=== PATIENT | male | born 1955 | race Caucasian/White ===

== ENCOUNTER 2020-08-31 09:08 | Outpatient (REF) | payer MEDICARE, BC, SELFPAY ==
[2020-08-31 18:59] LABS: ALT 69 U/L (16-63); AST 33 U/L (15-37); Albumin 3.6 g/dL (3.4-5.0); Alkaline Phosphatase 41 U/L (46-116); Anion Gap 8.3 mmol/L (3-11); BUN 18 mg/dL (7-18); Bilirubin, Total 0.7 mg/dL (0.2-1.0); CO2 25.7 mmol/L (21.0-32.0); CREATININE 0.89 mg/dL (0.70-1.30); Calcium 8.8 mg/dL (8.5-10.1); Chloride 103 mmol/L (98-107); Glucose 185 mg/dL (74-106); Potassium 4.3 mmol/L (3.5-5.1); Sodium 137 mmol/L (136-145); Total Protein 6.3 g/dL (6.4-8.2)
[2020-08-31 19:12] LABS: Hemoglobin A1C 7.2 % (<5.7)
[2020-08-31 22:22] LABS: Calculated LDL 92 mg/dL (<100); Cholesterol 155 mg/dL (<200); HDL Cholesterol 49 mg/dL (40-60); Triglyceride 71 mg/dL (<150)
[2020-09-01 18:08] LABS: PSA, Diagnostic 2.5 ng/mL (0.0-4.5)
== END 2020-08-31 09:28 ==
LOC: NCHCN 09:08
PROVIDERS: Visit Provider Physician Assistant
DX: E11.9 Type 2 diabetes mellitus without complications (principal); I10 Essential (primary) hypertension; R97.20 Elevated prostate specific antigen [PSA]
CPT/HCPCS: 80053; 80061; 83036; 84153

== ENCOUNTER 2021-07-24 14:14 | Outpatient (REF) | payer MEDICARE, BC, SELFPAY ==
[2021-07-24 15:29] LABS: Hemoglobin A1C 6.9 % (<5.7)
== END 2021-07-24 14:15 | disposition home or self-care (01) ==
LOC: NCHCN 14:14
PROVIDERS: Visit Provider Physician Assistant
DX: I10 Essential (primary) hypertension (principal); E11.9 Type 2 diabetes mellitus without complications
CPT/HCPCS: 83036

== ENCOUNTER → 2022-09-16 01:59 | Outpatient (CLI) | payer MEDICARE, BC, SELFPAY ==
--- NOTE | 2022-09-16 13:45 | DI.MRI_ITS ---
Exam(s) MR LUMBAR SPINE WO EXAM: MR LUMBAR SPINE WO CLINICAL HISTORY: CHRONIC LBP WITH RT-SIDED RADICULOPATHY, M54.5. TECHNIQUE: Multiplanar multisequence MRI of the Lumbar spine was performed. COMPARISON: No exams were available for comparison FINDINGS: Bones: The last intervertebral disc space is designated the L5/S1 level for the numbering purpose of this examination. Degenerative disc disease and facet arthropathy is seen at multiple levels. Alig nment is satisfactory. Hemangioma are seen in the T12 and L5 vertebral bodies. Cord: The conus tip ends at the T12 level. It is of normal size and signal intensity. T12-L1: No disc herniations or bulges are present. No central spinal canal or neural foraminal stenos is. L1-2: No disc herniations or bulges are present. No central spinal canal or neural foraminal stenosis . L2-3: No disc herniations or bulges are present. No central spinal canal or neural foraminal stenosis . L3-4: No disc herniations or bulges are present. No central spinal canal or neural foraminal stenosis . L4-5: There is a mild diffuse disc bulge and mild degenerative facet arthropathy. No significant juan ramon tral spinal canal stenosis is seen. No significant neural foraminal stenosis is present. L5-S1: There is a mild diffuse disc bulge. Mild degenerative changes of the facets are seen. There is no significant central spinal canal stenosis. There is moderate bilateral neural foraminal stenos is. Soft tissues: The visualized SI joints and sacrum are well maintained. The paraspinal soft tissues ar e unremarkable. IMPRESSION: Degenerative changes in the lumbar spine most marked at L4-5 and L5-S1 as described above. DATA REPOSITORY:
== END ==
PROVIDERS: Visit Provider Physician Assistant
DX: M47.816 Spondylosis without myelopathy or radiculopathy, lumbar region (principal)
CPT/HCPCS: 72148

== ENCOUNTER 2023-03-03 09:29 | Day surgery (SDC) | payer MEDICARE, BC, SELFPAY ==
--- NOTE | 2023-03-03 07:28 | ANES.PREOP_ITS ---
General Info Date of Service Date Performed: 03/03/23 Height: 5 ft 9 in Weight: 104.326 kg Body Mass Index (BMI): 34.0 Surgical Procedure: Operation Date: 03/03/23 12:40 Proposed Procedure Side Surgeon p Cataract Extraction with IOL Implant w/Glaucoma Stent Right Robert Salinas MD Meds Allergies and Home Medications Allergies Allergy/AdvReac Type Severity Reaction Status Date / Time amlodipine AdvReac Mild Pt states Unverified 03/03/23 10:05 it makes my legs swell Home Medication Medication Instructions Recorded apixaban 5 mg tablet (Eliquis) 5 mg PO BID 02/28/23 cyclobenzaprine 10 mg tablet 10 mg PO TID PRN 02/28/23 diltiazem HCl 300 mg capsule,24 300 mg PO DAILY 02/28/23 hr,extended release empagliflozin 25 mg tablet 25 mg PO QAM 02/28/23 (Jardiance) lisinopril 20 mg tablet 20 mg PO DAILY 02/28/23 metformin 1,000 mg tablet 1,000 mg PO BID 02/28/23 metoprolol succinate 50 mg 50 mg PO DAILY 02/28/23 tablet,extended release 24 hr spironolactone 25 mg tablet 25 mg PO DAILY 02/28/23 Current Visit Medications: Current Medications Generic Name Dose Route Start Last Admin Trade Name Freq PRN Reason Stop Dose Admin Acetaminophen 1,000 mg 03/03/23 06:00 Acetaminophen 500 Mg Tab PO Q4H PRN PRN Miscellaneous Medication 0 ml 03/03/23 06:00 Tropicam./Phenyleph. (1/2.5%) 5 Ml Btl OD DIRECTED [facility] Miscellaneous Medication 0 ml 03/03/23 06:00 Prednisolone 1%, Moxifloxacin 0.5%, Nepafenac 0.1% 5ml Btl OD DIRECTED B[facility]ARD Tetracaine HCl 0 ml 03/03/23 06:00 Tetracaine 0.5% 4 Ml Btl OD DIRECTED [facility] PFSH Active Problems Active Problems: Problem Status Onset Code Nuclear age-related cataract, right eye H25.11 Medical History Medical History (Updated 02/28/23 @ 13:34 by Robert Salinas MD) Diabetes mellitus HTN (hypertension) New onset a-fib Surgical History Surgical History (Updated 02/28/23 @ 11:40 by Wild Haywood) History of carpal tunnel release Hx of colonoscopy Tobacco Smoking/Tobacco Use Status: Former Tobacco Use Alcohol Alcohol Intake: current Alcohol intake frequency: 3 or more drinks per day Alcohol type: beer Substance Use Substance use: Occasionally Substance use type: marijuana Vital Signs and Lab Results Vital Signs Most Recent Vital Signs in EMR: Temp Pulse Resp BP Pulse Ox 36.1 C L 76 16 119/75 99 03/03/23 09:45 03/03/23 09:45 03/03/23 09:45 03/03/23 09:45 03/03/23 09:45 Lab Results Blood Type / Crossmatch: No Data to Display Complete Blood Count: No Data to Display Complete Metabolic Panel: No Data to Display Liver Function Panel: No Data to Display Coagulation Panel: No Data to Display Cardiac Panel: No Data to Display Arterial Blood Gas: No Data to Display Venous Blood Gas: No Data to Display Pancreas Panel: No Data to Display Thyroid Panel: No Data to Display Infectious Disease: No Data to Display Blood Cultures: No Data to Display Toxicology Panel: No Data to Display Anesthesia Assessment and Plan Anesthesia History Personal History: No History of Anesthesia Complications Family History: No Family History of Anesthesia Complications Exercise Tolerance Exercise Tolerance: Metabolic Equivalents>4 Cardiac & Pulmonary Exam Cardiac Exam: Normal S1/S2 Heart Sounds Pulmonary Exam: Clear Bilateral Breath Sounds Implantable Cardiac Device Does patient have a Pacemaker or an ICD?: No Airway Exam Known Difficult Airway: No Mallampati Class: 2 Mouth Opening: Normal (> 3cm) Thyromental Distance: Greater than 3 cm Neck Range of Motion: Limited ROM Neck Circumference: Thick Teeth Condition: Normal Dentition ASA Classification ASA Score: ASA 3 Emergency Case?: No NPO Status NPO Status: NPO Clears >2 hours, Solids >8 hours Anesthesia Plan Resuscitation Status: Full Code Anesthesia Technique: MAC Anesthesia Airway Planned: Natural Airway Monitors Used: Standard Monitors Preoperative Comments:: 68 yo male for cataract removal. would like MKO Sig PMHx: DM (07/21 a1c 6.9%, metformin, empagliflozin), afib (apixaban, dilt), HTN (lisinopril, metoprolol), former smoker, daily EtOH/cannabis.
[2023-03-03 09:32] VITALS: BMI 34.0
[2023-03-03 09:45] VITALS: BP 119/75; PULSE 76; RESP 16; TEMP 36.1; O2SAT 99
[2023-03-03] MEDS: Tropicam./Phenyleph. (1/2.5%) 5 ML BTL OD ×3 (10:09→10:22)
[2023-03-03] MEDS: Tetracaine 0.5% 4 ML BTL OD (10:48)
[2023-03-03] MEDS: Balanced Salt Soln.-PLUS 500 ML BAG (10:48)
[2023-03-03] MEDS: Lidocaine 1% Pres-Free 5 ML VIAL (10:49)
[2023-03-03] MEDS: Duovisc Viscoelastic System EACH 1 EACH (10:50)
[2023-03-03] MEDS: Povidone-Iodine Ophth 30 ML BTL (10:50)
[2023-03-03] MEDS: Phenylephrine/Lidocaine (15/10) MG/ML 1 ML VIAL (10:50)
[2023-03-03 11:08] VITALS: BP 109/68; PULSE 77; RESP 16; TEMP 36.3; O2SAT 95
--- NOTE | 2023-03-03 11:12 | W.PM.DSUDISC ---
Date of service: 03/03/23 Time of Service: 11:12 Discharge Plan Disposition Patient Disposition: Home Discharge Details Attending Provider: Robert Salinas Primary Care Provider: Breezy Love Home Meds and New Rx's Prescriptions: No Action cyclobenzaprine 10 mg Tablet 10 mg PO TID PRN lisinopril 20 mg Tablet 20 mg PO DAILY diltiazem HCl 300 mg Capsule,Extended Release 24 Hr 300 mg PO DAILY spironolactone 25 mg Tablet 25 mg PO DAILY metformin 1,000 mg Tablet 1,000 mg PO BID Eliquis 5 mg Tablet 5 mg PO BID Jardiance 25 mg Tablet 25 mg PO QAM metoprolol succinate 50 mg Tablet Extended Release 24 Hr 50 mg PO HS Discharge Instructions Stand Alone Forms: Post-op Topical CataractBj (DSU) Discharge Orders Discharge Orders: Discharge Order (Routine); Ordered 03/03/23 Ordered By: Robert Salinas DS: Diagnosis Discharge Diagnosis (1) Nuclear age-related cataract, right eye: Status: Resolved (2) Primary open angle glaucoma (POAG) of right eye, mild stage: Status: Chronic
--- NOTE | 2023-03-03 11:13 | ROE_ITS ---
Date of service: 03/03/23 Time of Service: 11:13 Operative Note Operative Note DATE OF PROCEDURE: 03/03/23 PRE-OP DIAGNOSIS: Nuclear cataract, right eye Primary open-angle glaucoma, right eye, mild stage POST-OP DIAGNOSIS: same PROCEDURE: 1. Cataract extraction using phacoemulsification with intraocular lens implant, right eye 2. Insertion of multiple anterior segment aqueous drainage devices (Glaukos iStent inject) into trabecular meshwork, right eye SURGEON: Robert Salinas ANESTHESIA TYPE: Local By Surgeon and MAC Refer to Anesthesia Record PATHOLOGY: none sent COMPLICATIONS: None Patient was transported to: same day Patient's condition: stable Implants: 1. Guilherme and Guilherme Vision Tecnis Eyhance DIB00 intraocular lens 2. Glaukos iStent inject trabecular micro-bypass stents Indications: 1. Progressive decreased vision due to cataract, right eye 2. Primary open angle glaucoma, right eye Procedure Description: CATARACT SURGERY OPERATIVE REPORT PREOPERATIVE DIAGNOSIS: Nuclear cataract, right eye Primary open-angle glaucoma, right eye, mild stage POSTOPERATIVE DIAGNOSIS: Same OPERATION: 1. Cataract extraction using phacoemulsification with posterior chamber intraocular lens implant, right eye. 2. Insertion of multiple anterior segment aqueous drainage devices (Glaukos iStent inject) into trabecular meshwork, right eye IOL: IOL Gas Welder/Model: Guilherme and Guilherme Vision Tecnis Eyhance DIB00 IOL Power: + 19.0 diopters IOL Serial Number: [id number] Optic Diameter: 6.0mm Haptic/Overall Diameter: 13.0mm PHACO INFO: Jasper Centurion Vision System with OZil and Active Fluidics Cumulative Dispersed Energy (CDE): 5.93 seconds TRABECULAR MICRO-BYPASS STENT INFO: Glaukos iStent inject x 2 Reference Number: [id number] Serial Number: [id number] SURGEON: Robert Salinas MD, SUDHA ANESTHESIA: Monitored Anesthesia Care (MAC), with local sub-tenon's anesthetic infiltration COMPLICATIONS: None SPECIMENS: None INDICATIONS FOR PROCEDURE: The patient is a 68-year-old gentleman with history of primary open-angle glaucoma, mild stage, in both eyes. He is currently maintained on 2 topical medications. He has developed a visually symptomatic cataract in the right eye and desires cataract surgery and attempt to improve and maximize his vision. In addition, the option of glaucoma stent procedure at the time of cataract surgery was offered to the patient and he wished to proceed with that as well. PROCEDURE: The correct surgical eye was identified and marked as the right eye and the pupil was dilated in the preoperative area using mydriatics and cycloplegics. The dilated pupil size was 7.0 mm. Oral sedation was administered in the form of an Imprimis MKO Melt (midazolam 3mg/ketamine 25mg/ondansetron 2mg). The patient was brought to the operating room where cardiopulmonary monitoring was instituted and surgical time-out was performed, confirming the correct operative eye and IOL power. Topical anesthesia was administered and ophthalmic povidone-iodine 5% was instilled into the conjunctival fornices. Lidocaine gel was applied to the cornea and the aditi-ocular area was prepped with Betadine 10% solution and draped in the usual sterile fashion for intraocular surgery, including an aperture drape. A Tegaderm transparent film dressing was cut in half and used to cover the lashes and lid margins. Care was taken to sequester the lashes and lid margins under the Tegaderm dressing. A lid speculum was placed between the lids of the operative eye and the Jasper LuxOR Revalia operating microscope was maneuvered into position. Kathryn scissors were then used to make a conjunctival buttonhole approximately 6mm posterior to the limbus in the inferonasal quadrant. Blunt dissection was carried out to expose bare sclera, and a blunt-tipped sub-tenon?s anesthesia cannula was introduced and passed posteriorly along the globe where non- preserved plain lidocaine was injected into posterior sub-Tenon?s space. A sideport knife was used to make a paracentesis port inferiortemporally. Intraocular phenylephrine/lidocaine was injected into the anterior chamber. The anterior chamber was then filled with viscoelastic. A 2.4mm keratome knife was used to construct a 2-plane near-clear corneal tunnel extending 2.0mm into clear cornea superiortemporally. . A flap was raised on the anterior capsule and capsulorhexis forceps were used to complete a continuous curvilinear capsulorhexis of 5.0 mm. Balanced salt solution was then used to perform cortical cleaving hydrodissection and nuclear hydrodelineation until the lens could be freely rotated within the capsular bag. The lens nucleus was then disassembled and removed within the capsular bag and iris plane using phacoemulsification. Residual cortical material was removed using the 45-degree angled silicone I/A tip with 0.3mm port. The posterior capsule was carefully polished to remove as much residual lens epithelial cells as safely possible. The capsular bag was then inflated and the anterior chamber deepened with viscoelastic. The lens implant described above was inserted into the capsular bag using the Guilherme and Guilherme Simplicity Injector. A Kuglen hook was used to dial the IOL into position. The anterior chamber was then slightly over-filled with viscoelastic. The microsope and the patient's head were tilted into the ideal position for viewing of the anterior chamber angle. Viscoelastic was placed on the cornea followed by a surgical gonionlens, and the anterior chamber angle landmarks were identified. The [employer]com iStent inject handpiece was introduced into the anterior chamber and the insertion sleeve was retracted once the injector was distal to the pupillary margin. The trocar was advanced through the central portion of the trabecular meshwork and into the back wall of Schlemm's canal in the inferonasal quadrant, with care taken to ensure the micro-insertion tube was perpendicular to the trabecular meshwork. The trabecular meshwork was lightly dimpled and the stent was injected without difficulty. The same procedure was then performed in the superiornasal quadrant. Both stents were then examined and noted to be in good position within the trabecular meshwork. A mild amount of blood reflux from the stent apertures was noted. The microscope and the patients head were returned to the normal coaxial position. Viscoelatic was then removed from the anterior chamber using the I/A handpiece. The lens implant was noted to center nicely within the capsular bag. The incisions were stromally hydrated, and the anterior chamber was reformed using BSS. Then 0.5cc of moxifloxacin 1.0mg/ml were injected into the capsular bag and anterior chamber. The incisions were checked with a Weck spear and found to be secure. Several drops of ophthalmic povidone-iodine 5% were then applied to the eye followed by two drops of Imprimis combination prednisolone/moxifloxacin/nepafenac solution. The drapes were removed and a clear plastic protective eye shield was placed over the eye. The patient was then returned to Same Day Surgery in stable condition.
--- NOTE | 2023-03-03 11:29 | W.ANESPOSTOP ---
Postoperative Evaluation Date, Time and Location Date Performed: 03/03/23 Time Performed: 11:29 Patient Location: Day Surgery Unit Vital Signs Most Recent Imported Vital Signs: Most Recent Vital Signs Temp Pulse Resp BP Pulse Ox 36.3 C L 77 16 109/68 95 03/03/23 11:08 03/03/23 11:08 03/03/23 11:08 03/03/23 11:08 03/03/23 11:08 Pain Score Most Recent Pain Score: Most Recent Pain Score Pain Level 0 03/03/23 11:08 Assessment Mental Status: Awake (Alert & Oriented to Patient Baseline) Airway and Respiratory Function: Patent airway with normal (patient baseline) respiratory exam Cardiovascular Function: Hemodynamically Stable Hydration Status: Adequately Hydrated Nausea & Vomiting: No Nausea or Vomiting Pain: Pt. Denies Any Pain Peripheral Nerve Block: Patient did not receive a nerve block
[2023-03-03 11:41] VITALS: BP 118/72; PULSE 76; RESP 16; TEMP 36; O2SAT 96
== END 2023-03-03 12:04 | disposition home or self-care (01) ==
PROVIDERS: PCP Physician Assistant; Visit Provider Ophthalmology
PROC: (CPT 66991; principal; 2023-03-03 12:30)
DX: H25.11 Age-related nuclear cataract, right eye (principal); H40.1111 Primary open-angle glaucoma, right eye, mild stage; I48.91 Unspecified atrial fibrillation; E11.9 Type 2 diabetes mellitus without complications; I10 Essential (primary) hypertension
CPT/HCPCS: 66991; V2632; C1783

== ENCOUNTER 2023-05-08 02:20 | Outpatient (CLI) | payer MEDICARE, BC, SELFPAY ==
--- NOTE | 2023-05-08 07:30 | DI.US_ITS ---
APPROVED REPORT EXAM: Comprehensive 2D, Doppler, and color-flow Echocardiogram Patient Location: Out-Patient [facility] Person: Shirin Miller RDCS (AE) Indications: AFib Other Information Study Quality: Fair Conclusion Normal left ventricular wall thickness and chamber size. Ejection fraction is 55 to 60%. Wall motio n is normal Normal right ventricular size and systolic function The left atrium is mildly dilated. Right atrial size is normal Aortic valve is trileaflet with mild regurgitation Normal mitral valve with trace regurgitation. Mildly dilated ascending aorta measuring 3.6 cm Estimated right ventricular systolic pressure is 22 mmHg Wall motion Left Ventricle The left ventricle is normal size. The left ventricular systolic function is normal. The left ventric ular ejection fraction is within the normal range. There is normal left ventricular wall thickness. T here is normal LV segmental wall motion. There is no ventricular septal defect visualized. LVEF is 55 -60%. Right Ventricle The right ventricle is normal size. The right ventricular systolic function is normal. The RVSP is 22 .2 mmHg. Atria The left atrium size is mildly dilated The right atrium size is normal. The interatrial septum is int act with no evidence for an atrial septal defect. Aortic Valve The aortic valve is normal in structure. There is no aortic valvular stenosis. Mild aortic regurgitat ion. Mitral Valve The mitral valve is normal in structure. No evidence of mitral valve stenosis. Trace mitral regurgit ation. Tricuspid Valve The tricuspid valve is normal in structure. There is no tricuspid valve stenosis. Trace tricuspid reg urgitation. Pulmonic Valve The pulmonary valve is normal in structure. There is no pulmonic valvular stenosis. Trace pulmonic re gurgitation. Great Vessels The aortic root is normal in size. The ascending aorta is mildly dilated. Aortic arch is not well vis ualized. IVC is normal in size and collapses >50% with inspiration. Pericardium There is no pericardial effusion. 2D Dimensions IVSD d PLAX 1.00 cm M: 0.6-1.2 LV Vol A2C d MOD 125.1 mL LVPW d PLAX 1.01 cm M: 0.6 - 1.2 LV Vol A4C d MOD 115.1 mL LVID d PLAX 4.72 cm M: 4.2 - 5.8 LA vol/ BSA A2C s A-L 31.6 mL/m2 LVDs 3.15 cm M: 2.5 - 4.0 LA vol/ BSA A4C s A-L 29.2 mL/m2 Ao Root d 3.60 cm M: 3.1 - 3.7 LA Vol/ BSA Biplane s A-L 30.5 mL/m2 RA Area A4C 16.72 cm2 LA Area A4C s MOD 21.99 cm2 RA Vol/ BSA A4C s A-L 18.3 mL/m2 LA Area A2C s MOD 22.83 cm2 Ao Asc Diam d 3.60 cm M: 2.6 - 3.4 LV EF A4C MOD 59.6 % LV EF Teichholz 60.8 % LV EF A2C MOD 55.9 % LVEF (Meehan's) 55.69 % M: 52 - 72 LV EF Biplane MOD 55.7 % LV Volume 87.38 mL M: 62 - 150 SV 66.87 mL LV Volume Index 39.71 mL/m2 M: 34 - 74 SV Index 30.45 mL/m2 LV Vol Biplane MOD 120.1 mL FS 32.50 % M-Mode TAPSE 1.20 cm (M/F) >1.7 LV Diastology MV E' medial 0.109 (>0.07 m/s) MV E Vmax 0.81 (0.4-1.3 m/s) LV E/e MED 7.45 (<14) MV E' lateral 0.115 (>0.1 m/s) LV E/e LAT 7.05 (<14) MV E/E' medial 7.46 MV E/E' lateral 7.06 Aortic Valve LVOT Area 3.82 cm2 AoV Area Vmax 2.59 cm2 LVOT Vmax 0.97 m/s AoV Area/ BSA (Vmax) 1.18 cm2/m2 LVOT Mean Samir. 0.70 m/s DANNIE Mean Samir. 2.82 cm2 LVOT Peak Grad 3.7 mmHg DANNIE Mean Samir. Index 1.28 cm2/m2 LVOT Mean Grad 2.3 mmHg AR DT 1286 msec LVOT VTI 0.188 m AR PHT 373 msec LVOT Diam s 2.20 cm AoV Vmax 1.43 m/s Velocity Ratio 0.68 AoV Mean Samir. 0.95 m/s AoV Peak Grad 8.1 mmHg LVOT SV 71.88 mL AoV Mean Grad 4.1 mmHg AoV VTI 0.222 m AoV Area VTI 3.24 cm2 AoV Area/ BSA (VTI) 1.48 cm/m2 Mitral Valve MV DT 142 (160-240 msec) MV PHT 41 msec MV Area PHT 5.35 cm2 MV VTI 0.249 m MV Area VTI 2.89 (4.0-6.0 cm2) Pulmonary Valve PV Vmax 0.85 (0.5-1.5 m/s) RVOT Peak Gr. 1.20 mmHg PV Peak Grad 2.9 mmHg RVOT Mean Gr. 0.65 mmHg PV Mean Grad 1.6 mmHg RVOT VTI 0.089 m PV VTI 0.148 m RVOT Vmax 0.55 m/s Tricuspid Valve TR Peak Grad 19.1 mmHg TR Vmax 2.19 m/s RA Pressure 3.00 mmHg RVSP (TR) 22.2 mmHg
== END 2023-05-08 02:40 ==
LOC: DI 02:20
PROVIDERS: PCP Physician Assistant; Visit Provider Physician Assistant
DX: I48.91 Unspecified atrial fibrillation (principal)
CPT/HCPCS: 93306

== ENCOUNTER 2023-06-20 14:42 | Outpatient (REF) | payer MEDICARE, BC, SELFPAY ==
[2023-06-20 15:34] LABS: Hemoglobin A1C 7.3 % (<5.7)
[2023-06-20 15:42] LABS: ALT 27 U/L (16-63); AST 13 U/L (15-37); Alkaline Phosphatase 46 U/L (46-116); Anion Gap 12.6 mmol/L (3-11); BUN 26 mg/dL (7-18); Bilirubin, Total 0.4 mg/dL (0.2-1.0); CO2 24.4 mmol/L (21.0-32.0); CREATININE 0.8 mg/dL (0.70-1.30); Calcium 9.4 mg/dL (8.5-10.1); Calculated LDL 43 mg/dL (<100); Chloride 102 mmol/L (98-107); Cholesterol 109 mg/dL (<200); Glucose 202 mg/dL (74-106); HDL Cholesterol 49 mg/dL (40-60); Potassium 4.8 mmol/L (3.5-5.1); Sodium 139 mmol/L (136-145); Total Protein 6.9 g/dL (6.4-8.2); Triglyceride 89 mg/dL (<150)
[2023-06-20 15:58] LABS: Microalb ug/mg Crea 10.3 ug/mg Cr
== END 2023-06-20 14:43 | disposition home or self-care (01) ==
LOC: NCHCN 14:42
PROVIDERS: PCP Physician Assistant; Visit Provider Physician Assistant
DX: E11.9 Type 2 diabetes mellitus without complications (principal)
CPT/HCPCS: 80053; 80061; 82043; 82570; 83036

== ENCOUNTER 2023-08-28 10:28 | Outpatient (CLI) | payer MEDICARE, BC, SELFPAY ==
[2023-08-28 11:06] VITALS: BP 127/85; PULSE 73; RESP 20; TEMP 36.3; O2SAT 97
--- NOTE | 2023-08-28 11:56 | DI.RAD_ITS ---
Exam(s) XR PAIN CLINIC LUMBAR SP 2V EXAM: XR PAIN CLINIC LUMBAR SP 2V CLINICAL HISTORY: DX: Lumbar spondylosis. TECHNIQUE: 2D and realtime digital imaging was performed. CONTRAST MATERIAL: None COMPARISON: No exams were available for comparison FINDINGS: Fluoroscopy provided during pain management therapy. Please see report for details. IMPRESSION: Total fluoroscopy time 53.9 seconds RADIATION DOSE DELIVERED: Ka,r=24.24mGy
[2023-08-28 12:03] VITALS: BP 136/95; PULSE 102; RESP 25; O2SAT 99
[2023-08-28] MEDS: Bupivacaine 0.5% Pres-Free 10 ML VIAL IJ (12:06)
[2023-08-28] MEDS: Omnipaque 240 MG/ML 50 ML BTL IJ (12:07)
--- NOTE | 2023-08-29 10:04 | PDOC.PAIN_ITS ---
Date of service: 08/28/23 Time of Service: 12:36 Pain Managment Procedure Note Procedure Note Procedure Note: PROCEDURE NOTE Bilateral Lumbar Medial Branch Blocks Date of Service: August 28, 2023 Patient: Levi Hardwick Provider: Marco A Gabriel DO, MPH Levisusu Hardwick has been referred to the [facility] for lumbar medial branch blocks. Pre-operative diagnosis: Lumbar Spondylosis without Myelopathy Post-operative diagnosis: Same Pre-procedure pain: VAS= 8/10 COMMENTS: He was previously evaluated in our clinic and his symptoms remain the same. He will remain on Eliquis per GREG Guidelines. Barb was interviewed and the medical records were reviewed. There were no medical, pharmacologic, radiographic or other structural contraindications to attempting fluoroscopically guided local anesthetic lumbar medial branch blocks. Risks and potential side effects were discussed. I also discussed the potential benefit(s) of the procedure with Levi, and voiced concerns were addressed. After Levi was completely informed about the procedure, the printed consent form was signed. A standard time-out procedure was performed. Levi was placed in the prone position on the fluoroscopy table. Automated blood pressure cuff and pulse oximeter were applied. The skin entry points for approaching the anatomic target points of the segmental medial branches of bi lateral L3,L4,L5 were identified with fluoroscopy and marked. The skin at the target site area was thoroughly prepared with Chlorhexadine. The skin was then draped. Next, a 25 gauge 3.5 spinal needle was placed under fluoroscopic guidance down on to the target point (the articular pillar) for each respective segmental medial branch. Position was confirmed in A/P and lateral views. Aspiration revealed no blood or clear fluid. Next, 0.25ml of omnipaque 240 was injected at each level. No contrast following a vascular or neural pattern was visualized under continuous fluoroscopy. Next, 0.25 ml of preservative-free 0.5% bupivicaine was injected at each level. There was no unusual discomfort expressed by Levi. The needles were withdrawn without difficulty. (49 mls of Omnipaque was wasted) Levi was observed and was without hemodynamic, neurologic, or allergic reactions.? Fluoroscopic images were digitally archived. Provacative testing using the Modified Queen's facet loading test- Left side Right Side Directly before the block VAS (0-10) = 8/10 VAS (0-10) = 8/10 Five minutes after the block VAS (0-10) = 5/10 VAS (0-10) = 5/10 Percentage relief obtained with this diagnostic block 50% 50% Any improved physical functioning directly after the blocks? Able to move much better. Follow up plans and appointments were discussed with Levi. Levi was instructed to keep careful note of how the usual pain was modified by these injections. Specifically, to keep a pain diary for the next 4 hours using a [facility] pain scale of 0-10 and report these results. Post procedure instruction was given as documented in the nursing documentation and having met discharge criteria, the patient was [facility] from the [facility]. Based on the medial branches blocked today, if they patient has adequate relief and we are able to proceed to radiofrequency ablation, the treatment should result in the denervation of the bilateral L4-L5 and L5-S1 facet joints. We would expect to denervate a total of 4 facets during the radiofrequency ablation. COMMENTS: No apparent complications. Post-procedure pain: VAS= 5/10 Levi will call back with 0-4 hour post-procedure pain scores. I personally performed the entire procedure. MARCO A GABRIEL DO, MPH ABPM&R-subspecialty board certification in Pain Medicine [facility]
== END 2023-08-28 10:29 | disposition home or self-care (01) ==
LOC: PC 10:28
PROVIDERS: PCP Physician Assistant; Visit Provider Preventive Medicine Occupational Medicine
DX: M54.50 Low back pain, unspecified (principal); M47.816 Spondylosis without myelopathy or radiculopathy, lumbar region
CPT/HCPCS: 64493; 64494; 72100; Q9967

== ENCOUNTER 2023-09-17 09:02 | Outpatient (CLI) | payer MEDICARE, BC, SELFPAY ==
--- NOTE | 2023-09-17 06:00 | DI.RAD_ITS ---
Exam(s) XR PAIN CLINIC LUMBAR SP 2V EXAM: XR PAIN CLINIC LUMBAR SP 2V CLINICAL HISTORY: Dx: Lumbar Spondylosis TECHNIQUE: 2D and realtime digital imaging was performed. CONTRAST MATERIAL: Refer to procedure report. COMPARISON: No exams were available for comparison FINDINGS: Fluoroscopy was provided for Dr. Gabriel during the performance of a lumbar medial branch block. Lester abreu refer to the procedure report for complete details. Ka,r=26.4 mGy IMPRESSION:
[2023-09-17 09:15] VITALS: BP 143/68; PULSE 93; RESP 20; TEMP 36.3; O2SAT 95
[2023-09-17 10:05] VITALS: BP 142/96; PULSE 99; RESP 25; O2SAT 95
[2023-09-17] MEDS: Bupivacaine 0.5% Pres-Free 10 ML VIAL IJ (10:07)
[2023-09-17] MEDS: Omnipaque 240 MG/ML 50 ML BTL IJ (10:08)
--- NOTE | 2023-09-17 10:13 | PDOC.PAIN ---
Date of service: 09/17/23 Time of Service: 10:13 Pain Managment Procedure Note Procedure Note Procedure Note: PROCEDURE NOTE Bilateral Lumbar Medial Branch Blocks Date of Service: September 17, 2023 Patient: Levi Hardwick Provider: Michael Gabriel DO, MPH Levi Hardwick has been [facility] to [facility] for lumbar medial branch blocks. 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 His pain has returned. Barb was interviewed and the medical records were reviewed. There were no medical, pharmacologic, radiographic or other structural contraindications to attempting fluoroscopically guided local anesthetic lumbar medial branch blocks. Risks and potential side effects were discussed. I also discussed the potential benefit(s) of the procedure with Levi, and voiced concerns were addressed. After Levi was completely informed about the procedure, the printed consent form was signed. A standard time-out procedure was performed. Levi was placed in the prone position on the fluoroscopy table. Automated blood pressure cuff and pulse oximeter were applied. The skin entry points for approaching the anatomic target points of the segmental medial branches of bilateral L3,L4,L5 were identified with fluoroscopy and marked. The skin at the target site area was thoroughly prepared with Chlorhexadine. The skin was then draped. Next, a 25 gauge 3.5 spinal needle was placed under fluoroscopic guidance down on to the target point (the articular pillar) for each respective segmental medial branch. Position was confirmed in A/P and lateral views. Aspiration revealed no blood or clear fluid. Next, 0.25ml of omnipaque 240 was injected at each level. No contrast following a vascular or neural pattern was visualized under continuous fluoroscopy. Next, 0.25 ml of preservative-free 0.5% bupivicaine was injected at each level. There was no unusual discomfort expressed by Levi. The needles were withdrawn without difficulty. (49 mls of Omnipaque was wasted) Levi was observed and was without hemodynamic, neurologic, or allergic reactions.? Fluoroscopic images were digitally archived. Provacative testing using the Modified Queen's facet loading test- Left side Right Side Directly before the block VAS (0-10) = 8/10 VAS (0-10) = 8/10 Five minutes after the block VAS (0-10) = 3/10 VAS (0-10) = 3/10 Percentage relief obtained with this diagnostic block 80% 80% Any improved physical functioning directly after the blocks? Able to bend and move without difficultly. Follow up plans and appointments were discussed with Levi. Levi was instructed to keep careful note of how the usual pain was modified by these injections. Specifically, to keep a pain diary for the next 4 hours using a numeric pain scale of 0-10 and report these results. Post procedure instruction was given as documented in the nursing documentation and having met discharge criteria, the patient was [facility] from the [facility]. Based on the medial branches blocked today, if they patient has adequate relief and we are able to proceed to radiofrequency ablation, the treatment should result in the denervation of the bilateral L4-L5 anL5-S1 facet joints. We would expect to denervate a total of 4 facets during the radiofrequency ablation. COMMENTS: No apparent complications. Post-procedure pain: VAS= 3/10 Levi will call back with 0-4 hour post-procedure pain scores. I personally performed the entire procedure. MICHAEL GABRIEL DO, MPH ABPM&R-subspecialty board certification in Pain Medicine [facility] [facility]
== END 2023-09-17 09:03 | disposition home or self-care (01) ==
LOC: PC 09:02
PROVIDERS: PCP Physician Assistant; Visit Provider Preventive Medicine Occupational Medicine
DX: M54.50 Low back pain, unspecified (principal); M47.816 Spondylosis without myelopathy or radiculopathy, lumbar region
CPT/HCPCS: 00123; 64493; 64494; 72100; Q9967

== ENCOUNTER 2023-10-30 08:18 | Outpatient (CLI) | payer MEDICARE, BC, SELFPAY ==
[2023-10-30 08:37] VITALS: BP 130/83; PULSE 61; RESP 20; TEMP 36.1; O2SAT 97
[2023-10-30] MEDS: Lactated Ringers 500 ML 80 ML IV (09:21)
[2023-10-30] MEDS: Midazolam 2 MG/2 ML VIAL IVP (09:21)
[2023-10-30] MEDS: fentaNYL 100 MCG/2 ML VIAL IVP ×2 (09:21→09:26)
[2023-10-30 09:53] VITALS: BP 140/93; PULSE 99; RESP 16; O2SAT 96
--- NOTE | 2023-10-30 09:53 | DI.RAD_ITS ---
Exam(s) XR PAIN CLINIC LUMBAR SP 2V EXAM: XR PAIN CLINIC LUMBAR SP 2V CLINICAL HISTORY: Dx: Lumbar Spondylosis TECHNIQUE: 2D and realtime digital imaging was performed. CONTRAST MATERIAL: Refer to procedure report. COMPARISON: No exams were available for comparison FINDINGS: Fluoroscopy was provided for Dr. Gabriel during the performance of a radiofrequency ablation. Please r efer to the procedure report for complete details. Ka,r=24.2 mGy IMPRESSION:
--- NOTE | 2023-10-30 10:04 | PDOC.PAIN_ITS ---
Date of service: 10/30/23 Time of Service: 10:05 Pain Managment Procedure Note Procedure Note Procedure Note: PROCEDURE NOTE BILATERAL LUMBAR RADIOFREQUENCY ABLATION Date of Service: October 30, 2023 Patient:? Levi Hardwick? Provider:? Michael Gabriel DO, MPH Levi Hardwick has been [facility] to the [facility] for Bilateral Lumbar Radiofrequency Ablation with the Avanos Machine.? Pre Operative Diagnosis: Lumbosacral Spondylosis without Myelopathy Post Operative Diagnosis: Same Pre procedure pain; VAS= 9/10 Comments: He did very well with the LMBBs PROCEDURE: Radiofrequency Ablation of medial branches - bilateral L3, L4, L5 and lateral branches of bilateral S1. Levi?was interviewed and the medical record was reviewed.? There were no medical, pharmacologic, radiographic or other structural contraindications to attempting fluoroscopically guided BILATERAL Lumbar Radiofrequency Ablation.?Risks and expected side effects as well as potential benefit of the procedure were reviewed with Levi, and the patient's voiced concerns were addressed.? The printed consent form was signed.? Standard time-out procedure was performed. Levi was brought into the fluoroscopy suite and positioned into the prone position on the fluoroscopy table and allowed to adjust to a position of comfort. A grounding pad was placed on the left abdomen. The sterile field was prepared using chlorhexidine preparation of the skin and sterile draping. Local anesthesia superficial and deep was provided by local infiltration of 2% lidocaine. A 17g 100 mm radiofrequency introducer needle was placed to the planned anatomic targets guided with intermittent fluoroscopy with a perpendicular approach to terminally place at the junction of the superior articular process and the transverse process of the bilateral L4, L5, the base of the sacral ala on the bilateral for the L5 medial branch nerve and the area between base of the sacral ala to the S1 foramen bilaterally. The stylets were removed and radiofrequency probes with a 4mm active tip were then inserted. Needle tip position of the probes was verified in the AP, oblique, and lateral views. At each site, the medial branch nerve was stimulated at 2 Hz to a maximum 1-2 volts determined to finalize safe needle and electrode placement. The patient was awake and r esponsive during this portion of the procedure. Each target was anesthetized with 1-2 mL of 2 % Lidocaine for anesthesia for lesioning and then each target was lesioned at 80 degrees Celsius for 2 minutes and 30 seconds. Tissue impedances were noted to be between 250 and 500 Ohms. There was no unusual discomfort expressed by Levi. The needles were withdrawn without difficulty and bandages placed over the needle placement sites, the patient was observed and was without hemodynamic, neurologic, or allergic reactions. Fluoroscopic images were digitally archived. POST PROCEDURE EVALUATION: IMPRESSION: 1. Summary of procedure. Medication given is documented in the MAR. 2. Follow up plan: Levi to contact [place] [facility] as needed.?This procedure may be repeated if the patient achieves at least 50% improvement in pain/function for at least 6 months. 3. Estimated Blood Loss: <5 mls 4. Fluoroscopy time: Documented in the EMR. Follow up plans and appointments were discussed with the Levi. Post procedure instruction was given as documented in nursing documentation and having met discharge criteria, Levi was discharged from the [place] [facility]. COMMENTS: No apparent complications. Post-procedure pain: VAS= 6/10. I personally completed the entire procedure. MICHAEL GABRIEL DO, MPH ABPM&R - Subspecialty board certification in Pain Medicine [facility] [facility]
[2023-10-30] MEDS: Bupivacaine 0.5% Pres-Free 10 ML VIAL IJ (10:09)
[2023-10-30] MEDS: Lidocaine 2% Pres-Free 5 ML VIAL IJ (10:09)
[2023-10-30] MEDS: methylPREDNISolone ACETATE 40 MG/ML VIAL IJ (10:09)
== END 2023-10-30 08:19 | disposition home or self-care (01) ==
LOC: PC 08:19
PROVIDERS: PCP Physician Assistant; Visit Provider Preventive Medicine Occupational Medicine
DX: M54.50 Low back pain, unspecified (principal); M47.817 Spondylosis without myelopathy or radiculopathy, lumbosacral region
CPT/HCPCS: 00123; 64635; 64636; 72100; J1030; J2250; J3010

== ENCOUNTER 2024-07-07 07:41 | Outpatient (CLI) | payer MEDICARE, BC, SELFPAY ==
[2024-07-07] VITALS (19 sets, daily range): BP systolic 121–146; BP diastolic 74–91; PULSE 60–105; RESP 16–28; TEMP 36.4; O2SAT 92–97
[2024-07-07] MEDS: Midazolam 2 MG/2 ML VIAL IVP (09:09)
[2024-07-07] MEDS: Lactated Ringers 500 ML 80 ML IV (09:10)
[2024-07-07] MEDS: fentaNYL 100 MCG/2 ML VIAL IVP (09:10)
--- NOTE | 2024-07-07 09:45 | DI.RAD_ITS ---
Exam(s) XR PAIN CLINIC LUMBAR SP 2V EXAM: XR PAIN CLINIC LUMBAR SP 2V CLINICAL HISTORY: Lumbar Spondylosis TECHNIQUE: 2D and realtime digital imaging was performed. Radiologist not present. CONTRAST MATERIAL: None. COMPARISON: No exams were available for comparison FINDINGS: Fluoroscopy was provided for pain management therapy. Please refer to procedure report or details. Radiation Exposure Index: Ka,r=33.63 mGy IMPRESSION: As above. RADIATION DOSE DELIVERED:
[2024-07-07] MEDS: Lidocaine 2% Multi-Dose 20 ML VIAL IJ (09:57)
[2024-07-07] MEDS: methylPREDNISolone ACETATE 40 MG/ML VIAL IJ (09:58)
[2024-07-07] MEDS: Bupivacaine 0.5% Pres-Free 10 ML VIAL IJ (09:58)
[2024-07-07] MEDS: Nerve Block Tray 1 EACH MC (09:59)
--- NOTE | 2024-07-12 08:29 | PDOC.PAIN_ITS ---
Date of service: 07/07/24 Time of Service: 09:00 Pain Managment Procedure Note Procedure Note Procedure Note: PROCEDURE NOTE BILATERAL LUMBAR RADIOFREQUENCY ABLATION Date of Service: July 07, 2024 Patient:? Levi Hardwick? Provider:? Michael Gabriel DO, MPH Levi Hardwick has been referred to the [facility] for Bilateral Lumbar Radiofrequency Ablation with the [employer] Machine.? Pre Operative Diagnosis: Lumbosacral Spondylosis without Myelopathy Post Operative Diagnosis: Same Pre procedure pain; VAS= 7/10 Comments: >6 months of >50% pain relief with his last RFA on 10/30/23. The pain has returned. PROCEDURE: Radiofrequency Ablation of medial branches - bilateral L3, L4, L5 and lateral branches of bilateral S1. Barbwas interviewed and the medical record was reviewed.? There were no medical, pharmacologic, radiographic or other structural contraindications to attempting fluoroscopically guided BILATERAL Lumbar Radiofrequency Ablation.?Risks and expected side effects as well as potential benefit of the procedure were reviewed with Levi, and the patient's voiced concerns were addressed.? The printed consent form was signed.? Standard time-out procedure was performed. Levi was brought into the fluoroscopy suite and positioned into the prone position on the fluoroscopy table and allowed to adjust to a position of comfort. A grounding pad was placed on the left abdomen. The sterile field was prepared using chlorhexidine preparation of the skin and sterile draping. Local anesthesia superficial and deep was provided by local infiltration of 2% lidocaine. A 17g 100 mm radiofrequency introducer needle was placed to the planned anatomic targets guided with intermittent fluoroscopy with a perpendicular approach to terminally place at the junction of the superior articular process and the transverse process of the bilateral L4, L5, the base of the sacral ala on the bilateral for the L5 medial branch nerve and the area between base of the sacral ala to the S1 foramen bilaterally. The stylets were removed and radiofrequency probes with a 4mm active tip were then inserted. Needle tip position of the probes was verified in the AP, oblique, and lateral views. At each site, the medial branch nerve was stimulated at 2 Hz to a maximum 1-2 volts determined to finalize safe needle and electrode placement. The patient was awake and responsive during this portion of the procedure. Each target was anesthetized with 1-2 mL of 2 % Lidocaine for anesthesia for lesioning and then each target was lesioned at 80 degrees Celsius for 2 minutes and 30 seconds. Tissue impedances were noted to be between 250 and 500 Ohms. I next injected 1/4 cc of Depomedrol (40 mg/cc) followed by 1 cc of 0.5% Bupivacaine at each sensory nerve. There was no unusual discomfort expressed by Levi. The needles were withdrawn without difficulty and bandages placed over the needle placement sites, the patient was observed and was without hemodynamic, neurologic, or allergic reactions. Fluoroscopic images were digitally archived. POST PROCEDURE EVALUATION: IMPRESSION: 1. Summary of procedure. Medication given is documented in the MAR. 2. Follow up plan: Levi to contact [facility] as needed.?This procedure may be repeated if the patient achieves at least 50% improvement in pain/function for at least 6 months. 3. Estimated Blood Loss: <5 mls 4. Fluoroscopy time: Documented in the EMR. Follow up plans and appointments were discussed with the Levi. Post procedure instruction was given as documented in nursing documentation and having met discharge criteria, Levi was discharged from the [facility]. COMMENTS: No apparent complications. Post-procedure pain: VAS= 1/10. I personally completed the entire procedure. MICHAEL GABRIEL DO, MPH ABPM&R - Subspecialty board certification in Pain Medicine [facility] [facility]
== END 2024-07-07 07:42 | disposition home or self-care (01) ==
LOC: PC 07:41
PROVIDERS: PCP Physician Assistant; Visit Provider Preventive Medicine Occupational Medicine
DX: M47.817 Spondylosis without myelopathy or radiculopathy, lumbosacral region (principal); M54.50 Low back pain, unspecified
CPT/HCPCS: 64635; 64636; 72100; J0665; J1010; J2003; J2250; J3010

== ENCOUNTER 2024-08-05 16:49 | Outpatient (REF) | payer MEDICARE, BC, SELFPAY ==
--- NOTE | 2024-08-05 11:45 | SKI_PTH ---
PATIENT: Levi Hardwick LOC: NCN #:[id number] AGE/SX: 69/M ROOM: RE08/05/[address]: Breezy Love : 1955 BED: DIS: 08/05/2024 SPEC #: [id number] RECD: 08/05/24 17:27 STATUS: GILDA REQ #: [id number] GARY: 08/05/24 11:[address]: Breezy Love DEPT: Surgical Specimen RECD BY: Diandra Santiago Tissues: 1 - SKIN BIOPSY(SHAVE/PUNCH) Procedures: SKIN LEVEL 4 Comments: [id number]
--- OUTSIDE RECORDS SUMMARY | 2024-08-05 16:52 | XMS_ITS | Clinical Summary ---
Author Organization [facility] [place] [address] Care Team Providers Care Market Development Manager Name Role Phone Unavailable Primary Care Provider Unavailabl e Social History Tobacco Use Types Packs/Day Years Used Date Smoking Tobacco: Never Assessed Sex and Gender Information Value Date Recorded Sex Assigned at Not on file Gender Identity Not on file Sexual Orientation Not on file Plan of Treatment Health Maintenance Due Date Last Done Comments CT Colonography 1954 Colonoscopy 1955 Colorectal Cancer Screening 1955 FIT DNA 1954 FIT 1955 Sigmoidoscopy (10 year) with FIT yearly 1954 Sigmoidoscopy 1955 Hepatitis C Screening 02/11/1972 Lipid Screening 02/11/1972 Tdap adult 1973 Tetanus vaccine 1973 Zoster vaccine (1 of 2) 02/11/2004 Advance Directive 2009 Pneumoccocal Vaccine: 65+ (1 of 1 - PCV) 2019 Covid-19 Vaccine (1 - season) 2024 Influenza (Flu) vaccine (1 o f 1 - Influenza standard series) 08/01/2024
--- OUTSIDE RECORDS SUMMARY | 2024-08-05 16:52 | XMS_ITS | Continuity of Care Document ---
Author Organization [facility] Address [address] [place] [address] Care Team Providers Care Real Time Analyst Name Role Phone Breezy Ling Primary Care Physic traci Encounter [facility] Date(s): 08/03/24 - 08/03/24 [facility] [address] [place] [address] Discharge Disposition: Home or Self Care Attending Physician: Ivan MCMILLANBreezy JOYCE Admitting Physician: Ivan MCMILLANBreezy JOYCE Referring Physician: [facility] Allergies, Adverse Reactions, Alerts Substance Criticality Severity Reaction Reaction Severity Status amLODIPine Unable to assess criticality Unknown Oedema Active Immunizations Given and Recorded Vaccine Date Status Refusal Reason SARS-CoV-2 (COVID-19) mRNA-1273 vaccine 03/16/21 R ecorded SARS-CoV-2 (COVID-19) mRNA-1273 vaccine 02/16/21 R ecorded influenza virus vaccine, live 08/31/19 Recorded influenza virus vaccine, live 10/05/18 Recorded tetanus/diphth/pertuss (Tdap) adult/adol 07/08/12 Recorded pneumococcal 23-polyvalent vaccine 07/08/12 Record ed influenza virus vaccine, inactivated 12/01/04 Gilberto rded tetanus-diphth toxoids (Td) adult/adol 12/01/00 Re corded Results Laboratory List Name Date Automated Diff 08/03/24 CBC w/ Diff 08/03/24 Comprehensive Metabolic Panel 08/03/24 Lipid Panel 08/03/24 PSA Screen 08/03/24 Most recent to oldest [Reference Range]: 1 WBC [5.0-10.0 x10^3/mcL] 7.1 x10^3/mcL (08/03/24 8:18 AM) RBC [4.6-6.0 x10^6/mcL] 4.7 x10^6/mcL (08/03/24 8:18 AM) Neutro Auto [40.0-75.0 %] 57.5 % (08/03/24 8:18 AM) Lymph Auto [20.0-50.0 %] 26.7 % (08/03/24 8:18 AM) Early Auto [2.0-15.0 %] 10.5 % (08/03/24 8:18 AM) Basophil Auto [0.0-1.0 %] 0.8 % (08/03/24 8:18 AM) BUN [7-18 mg/dL] 18 mg/dL (08/03/24 8:18 AM) Cholesterol Total [50-200 mg/dL] 117 mg/ dL (08/03/24 8:18 AM) LDL [0-130 mg/dL] 42 mg/dL (08/03/24 8:18 AM) Glucose Level [74-106 mg/dL] 167 mg/dL *HI* (08/03/24 8:18 AM) Potassium Level [3.5-5.1 mmol/L] 5.1 mmo l/L (08/03/24 8:18 AM) MCV [80.0-96.0 fL] 100.0 fL *HI* (08/03/24 8:18 AM) HDL [40-60 mg/dL] 56 mg/dL (08/03/24 8:18 AM) AST [15-37 unit/L] 11 unit/L *LOW* (08/03/24 8:18 AM) ALT [16-63 unit/L] 31 unit/L (08/03/24 8:18 AM) MCHC [31.0-35.0 g/dL] 33.3 g/dL (08/03/24 8:18 AM) Sodium Level [136-145 mmol/L] 137 mmol/L (08/03/24 8:18 AM) Hct [41.0-51.0 %] 46.8 % (08/03/24 8:18 AM) Triglycerides [0-150 mg/dL] 95 mg/dL (08/03/24 8:18 AM) Calcium Level [8.5-10.1 mg/dL] 9.0 mg/dL (08/03/24 8:18 AM) Albumin Level [3.4-5.0 g/dL] 3.7 g/dL (08/03/24 8:18 AM) Protein Total [6.4-8.2 g/dL] 7.0 g/dL (08/03/24 8:18 AM) MCH [26.0-32.0 pg] 33.3 pg *HI* (08/03/24 8:18 AM) Neutro Absolute 4.1 x10^3/mcL *NA* (08/03/24 8:18 AM) Bilirubin Total [0.2-1.0 mg/dL] 0.6 mg/d L (08/03/24 8:18 AM) Hgb [14.0-18.0 g/dL] 15.6 g/dL (08/03/24 8:18 AM) Alk Phos [46-146 unit/L] 39 unit/L *LOW* (08/03/24 8:18 AM) Platelets [130-450 x10^3/mcL] 197 x10^3/ mcL (08/03/24 8:18 AM) CO2 [21-32 mmol/L] 28 mmol/L (08/03/24 8:18 AM) eGFR Non-AA [>=60] 91 (08/03/24 8:18 AM) eGFR AA [>=60] 91 (08/03/24 8:18 AM) Chloride Level [98-107 mmol/L] 101 mmol/ L (08/03/24 8:18 AM) RDW-CV [11.5-14.5 %] 12.5 % (08/03/24 8:18 AM) Imm Gran Auto [0.0-0.9 %] 0.1 % (08/03/24 8:18 AM) Creatinine Level [0.70-1.30 mg/dL] 0.91 mg/dL (08/03/24 8:18 AM) PSA Total Screening [0.00-4.00 ng/mL] 2. 86 ng/mL 1 (08/03/24 8:18 AM) Eos, Auto [1.0-6.0 %] 4.4 % (08/03/24 8:18 AM) 1Interpretive Data: The testing method is an heterogeneous enzyme Immunoassay manufactured by [employer] and performed on the GeeYuu system. Values obtained with different assay methods or kits may be different and cannot be used interchangeably. Test results cannot be interpreted as absolute evidence for the presence or absence of malignant disease. Social History Social History Type Response Sex Male Sex Representation Male (finding) Patient Care team information Care Team Personnel Name: Breezy Ling DO Position: No Access Member Role: Primary Care Physician Address: [address] [place] [phone] Insurance Providers Guarantor name: PRISCILLA HER Health Plan Information #: 2 Payer: [facility] PPO Member Number: [id number] Policy Number: NA Health Plan Information #: 1 Payer: MEDICARE B [employer] Member Number: [id number] Policy Number: NA
--- OUTSIDE RECORDS SUMMARY | 2024-08-05 16:52 | XMS_ITS | Continuity of Care Document ---
Author Organization [facility] Address [address] [place] [address] Care Team Providers Care Natural Sciences Department Chair Name Role Phone Breezy Love Primary Care Physician [facility] [address] [place] [address] Discharge Disposition: Home or Self Care Attending Physician: Breezy Love DO Admitting Physician: Breezy Love DO Referring Physician: Breezy Love DO Allergies, Adverse Reactions, Alerts Substance Reaction Severity Status amLODIPine Oedema Unknown Active Immunizations Given and Recorded Vaccine Date [...] Re corded Results Laboratory List Name Date Comprehensive Metabolic Panel 02/14/23 Hemoglobin A1c 02/14/23 Lipid Panel 02/14/23 PSA Screen 02/14/23 Most recent to oldest [Reference Range]: 1 BUN [7-18 mg/dL] 22 mg/dL *HI* (02/14/23 9:57 AM) Cholesterol Total [50-200 mg/dL] 183 mg/ dL (02/14/23 9:57 AM) LDL [0-130 mg/dL] 117 mg/dL (02/14/23 9:57 AM) Glucose Level [74-106 mg/dL] 180 mg/dL *HI* (02/14/23 9:57 AM) Potassium Level [3.5-5.1 mmol/L] 4.5 mmo l/L (02/14/23 9:57 AM) HDL [40-60 mg/dL] 53 mg/dL (02/14/23 9:57 AM) AST [15-37 unit/L] 18 unit/L (02/14/23 9:57 AM) ALT [16-63 unit/L] 38 unit/L (02/14/23 9:57 AM) Sodium Level [136-145 mmol/L] 136 mmol/L (02/14/23 9:57 AM) Triglycerides [0-150 mg/dL] 65 mg/dL (02/14/23 9:57 AM) Calcium Level [8.5-10.1 mg/dL] 9.1 mg/dL (02/14/23 9:57 AM) Albumin Level [3.4-5.0 g/dL] 3.9 g/dL (02/14/23 9:57 AM) Protein Total [6.4-8.2 g/dL] 7.4 g/dL (02/14/23 9:57 AM) Bilirubin Total [0.2-1.0 mg/dL] 0.5 mg/d L (02/14/23 9:57 AM) Alk Phos [46-146 unit/L] 50 unit/L (02/14/23 9:57 AM) CO2 [21-32 mmol/L] 25 mmol/L (02/14/23 9:57 AM) eGFR Non-AA [>=60] 93 (02/14/23 9:57 AM) eGFR AA [>=60] 93 (02/14/23 9:57 AM) Hemoglobin A1c [4.0-6.0 %] 7.3 % *HI* (02/14/23 9:57 AM) Chloride Level [98-107 mmol/L] 100 mmol/ L (02/14/23 9:57 AM) Creatinine Level [0.70-1.30 mg/dL] 0.87 mg/dL (02/14/23 9:57 AM) PSA Total Screening [0.00-4.00 ng/mL] 2. 43 ng/mL (02/14/23 9:57 AM) Social History Social History Type Response Sex Male Patient Care team information Care Team Personnel Name: Breezy Love DO Position: No Access Member Role: Primary Care Physician Address: Address: [address] [place] [phone]
--- OUTSIDE RECORDS SUMMARY | 2024-08-05 16:52 | XMS_ITS | Encounter Summary ---
Author Organization [facility] Address [facility] [place] [address] Care Team Providers Care Insurance Business Analyst Name Role Phone Unavailable Primary Care Provider Unavailabl e Encounter Details Date Type Department Care Team (Latest Contact Info) Description 09/09/2023 10:56 AM EDT - 09/09/2023 11:59 PM EDT Hospital Encounter Laboratory [facility] [place] [address] Discharge Disposition: Home Social History Tobacco Use Types Packs/Day Years Used Date Smoking Tobacco: Never Assessed Sex and Gender Information Value Date Recorded Sex Assigned at Not on file Gender Identity Not on file Sexual Orientation Not on file documented as of this encounter Plan of Treatment Not on file documented as of this encounter Procedures Procedure Name Priority Date/Time Associated Diagnosis Comments SURGICAL PATHOLOGY REPORT Routine 09/09/2023 8:39 AM EDT documented in this encounter Results * Surgical Pathology Report (09/09/2023 8:39 AM EDT) Final Diagnosis [id number] ? Location: [facility] The signing pathologist has (i) examined the relevant preparation(s) for the specimen(s) and (ii) rendered or confirmed the diagnosis(es). . ?Surgical Pathology DIAGNOSIS A - Descending Polyp: - ??Tubular adenoma. B - Rectal Polyp: - ??No tissue present. CR-PX Electronically signed by: ?Milind Bray MD Verified: ??09/17/2023 14:14 ??Pathologist Performed at: ??-[facility] Dept. of Pathology, [place] [address] Sales Development Director: Margaux Liu MD, AP, ??CLIA Certificate: [id number] SPECIMEN(S) SUBMITTED A - Descending Polyp () B - Rectal Polyp Referring Identifier: ?(not provided) CARBON COPY: Breezy Love CLINICAL INFORMATION Not provided SPECIMEN PROCESSING A - Labeled/Fixativ e: Descending polyp, formalin. Quantity/Size: Four, ranging from 0.4-0.6 cm. Tissue Description: Soft, beatty tissues. Sections/Proces sing: Submitted in toto ??in 1 cassette labeled A1. B - Labeled/Fixativ e: Rectal polyp, formalin. Quantity/Size: Single, 0.4 cm. Tissue Description: Soft, brown debris. Sections/Proces sing: Submitted in toto ??in 1 cassette labeled B1. ??sdy 09/17/2023 2:14 PM EDT [facility] GI Biopsy 09/09/2023 8:39 AM EDT 09/09/2023 8:39 AM EDT GI Biopsy 09/09/2023 8:39 AM EDT 09/09/2023 8:39 AM EDT Odell Chapa MD PATHOLOGY/CYTO LOGY ORDERABLES [facility] [place] [address] [facility] [place] [phone] documented in this encounter Visit Diagnoses Not on filedocumented in this encounter
--- OUTSIDE RECORDS SUMMARY | 2024-08-05 16:52 | XMS_ITS | Continuity of Care Document ---
Author Organization [facility] Address [address] [place] [address] Care Team Providers Care Livery Car Driver Name Role Phone Breezy Ling Primary Care Physic traci Encounter [facility] [id number] Date(s): 05/21/23 - 06/25/23 [facility] [address] [place] [address] Discharge Disposition: Home or Self Care Attending Physician: Ren Woodward MD Admitting Physician: Ren Woodward MD Referring Physician: Ren Woodward MD Allergies, Adverse Reactions, Alerts Substance Reaction Severity [...] tetanus-diphth toxoids (Td) adult/adol 12/01/00 Re corded Social History Social History Type Response Sex Male History and physical note * Ashli Aguilera: PERFORM Event Display: History and Physical Authored Date: [id number] PRISCILLA HER :1955 Age:68 years Sex:Male Primary Care Physician: Breezy Cerna DO History of colon polyps. Previous colonoscopies and path reports have been scanned into [employer] Electronically Signed on 05/22/23 07:30 AM Ashli Aguilera Patient Care team information Care Team Personnel Name: Breezy Ling DO Position: No Access Member Role: Primary Care Physician Address: Address: [address] [place] [phone] [place]
== END 2024-08-05 16:50 | disposition home or self-care (01) ==
LOC: NCHCN 16:49
PROVIDERS: PCP Physician Assistant; Visit Provider Physician Assistant
DX: L82.1 Other seborrheic keratosis (principal)
CPT/HCPCS: 88305

== ENCOUNTER 2024-12-03 12:16 | Outpatient (REF) | payer MEDICARE, BC, SELFPAY ==
--- OUTSIDE RECORDS SUMMARY | 2024-12-03 12:21 | XMS_ITS | Encounter Summary ---
Author Organization [facility] Address [address] [place] [address] Care Team Providers Care Manager Print Name Role Phone Unknown, Provider Primary Care Provider Unava ilable Encounter Details Date Type Department Care Team (Late st Contact Info) Description 10/08/[address] [facility] [[email or web address]] [phone] Odell De Los Santos MD [address] [place] [phone] Social History Tobacco Use Types Packs/Day Years Used Date Smoking Tobacco: Never Assessed Sex and Gender Information Value Date Recorded Sex Assigned at Not on file Legal Sex Male 22:05 EST Gender Identity Not on file Sexual Orientation Not on file documented as of this encounter Plan of Treatment Not on file documented as of this encounter Procedures Procedure Name Priority Date/Time Associated Diagnosis Comments SURGICAL PATHOLOGY Routine 10/08/2019 22 :08 EST documented in this encounter Results * SURGICAL PATHOLOGY (10/08/2019 22:08 EST) Pathology Report: SURGICAL PATHOLOGY REPORT Reports generated via electronic interface contain original data; however they are lacking the format of the original report. Caution should be taken when reading/interpret ing unformatted reports. Name: ? LEVI HER ? Accession #: ? [id number] ? : ? 1955 (Age: 64) ??M ? Collect Date: ? 10/08/2019 ? Location: ? [facility] ? Receive Date: ? 10/08/2019 ? Provider: ODELL DE LOS SANTOS MD Copy to: ? Final Pathologic Diagnosis: A. COLON, CECUM, POLYP, BIOPSY: - Sessile serrated adenoma with cytologic dysplasia. B. COLON, TRANSVERSE, POLYPS, BIOPSY: - Fragments of tubular adenoma(s). C. COLON, TRANSVERSE, 90-100 CM, POLYP #2, BIOPSY: - Fragments of sessile serrated adenoma. D. INTER-COLONIC DEBRIS, REMOVAL: - Fecal matter. E. COLON, SIGMOID, POLYP, BIOPSY: - Fragments of tubular adenoma. F. RECTUM, AT 20-30 CM, POLYPECTOMY: - Hyperplastic polyp. G. RECTUM, POLYP, POLYPECTOMY: - Tubulovillous adenoma. - Lateral (mucosal) margins negative for dysplasia. Document reviewed and electronically signed by: NAVDEEP MOYER MD Report ??Date: 10/11/2019 10:28 By the signature above, the attending physician certifies that he/she has personally conducted a gross and/or microscopic examination of the described specimens and rendered or confirmed the above diagnosis. Specimen(s) Received: A. ??Cecal polyp B. ??Transverse colon polyps C. ??Transverse colon #2, 90-100 cm D. ??Inter-colonic debris E. ??Sigmoid polyp F. ??Rectal polyp stalk, 20-30 cm G. ??Rectal polyp Clinical History: Not listed Gross Description: A. ?Received in formalin labelled with proper patient identification (initials S, D) and cecal polyp is a polypoid portion of mucosa (0.8 x 0.7 x 0.3 cm). The resection margin is inked black and the specimen is trisected and submitted in A1. B. ?Received in formalin labelled with proper patient identification (initials S, D) and transverse colon polyps is a single dome-shaped portion of mucosa (0.6 x 0.4 x 0.2 cm). The resection margin is inked black and the specimen is bisected and submitted in B1. Additionally received in the container are multiple fragments of possible tissue admixed with food particles (0.5 x 0.5 x 0.1 cm in aggregate). Entirely submitted in B2. C. ?Received in formalin labelled with proper patient identification (initials S, D) and transverse colon 90-100 cm are three strips of beatty, granular mucosa (0.7 x 0.3 x 0.1 cm, 0.7 x 0.5 x 0.1 cm, and 2.0 x 0.6 x 0.1 cm). The largest fragment resection margin is inked black and the specimen is serially sectioned and submitted in C1 and C2. The midsized fragment margin is inked black, and the specimen is trisected. The smallest fragment margin is inked blue, and remains intact. These two smaller fragments are submitted in C3. D. ?Received in formalin labelled with proper patient identification (initials S, D) and intracolonic debris are multiple fragments of brown-beatty, soft material (2.8 x 0.8 x 0.3 cm in aggregate). Entirely submitted in D1. E. ?Received in formalin labelled with proper patient identification (initials S, D) and sigmoid polyp are three beatty, granular tissue fragments (0.3 x 0.2 x 0.2 cm, 0.5 x 0.3 x 0.2 cm, and 0.8 x 0.5 x 0.2 cm). The smaller two fragments are submitted intact in E1, and the largest fragment is trisected and submitted in E2 F. ?Received in formalin labelled with proper patient identification (initials S, D) and rectal polyp stalk is a dome-shaped portion of beatty-brown, granular mucosa (1.0 x 0.7 x 0.5 cm). A ragged defect (0.2 x 0.2 cm) is present at the apex. The resection margin is inked black and the specimen is trisected and submitted in F1. G. ?Received in formalin labelled with proper patient identification (initials S, D) and rectal polyp is a red-brown, polypoid portion of mucosa (1.2 x 1.0 x 0.5 cm). A possible resection margin (0.3 x 0.2 cm) is inked black, and the specimen is serially sectioned and submitted in G1 and G2. ALYX Beltrán (ASCP) 10/09/2019 8:49 AM End of Report [facility] 10/08/2019 22:0 8 EST 10/08/2019 22:08 EST us Odell De Los Santos MD PATHOLOGY ORDERABLES F inal Result [facility] [address] [place] [address] documented in this encounter Visit Diagnoses Not on filedocumented in this encounter Care Teams Manager Print Relationship Specialty Start Date End Date Unknown, Provider, PCP - General 10/08/19 documented as of this encounter
--- OUTSIDE RECORDS SUMMARY | 2024-12-03 12:21 | XMS_ITS | Clinical Summary ---
Author Organization [facility] Address [address] [place] [address] Care Team Providers Care Interventional Radiology Technologist Name Role Phone Unknown, Provider Primary Care Provider Unava ilable Social History Tobacco Use Types Packs/Day Years Used Date Smoking Tobacco: Never Assessed Interpersonal Safety Answer Date Record ed Physically Hurt Never 07/03/2020 Verbally Threaten Not on file 07/03/2020 Sex and Gender Information Value Date Recorded Sex Assigned at Not on file Legal Sex Male 22:05 EST Gender Identity Not on file Sexual Orientation Not on file Plan of Treatment Health Maintenance Due Date Last Done Comments Hepatitis C Screen 1955 Fall Risk Screening 2019 COVID-19 Vaccine (2023-25 season) 2024 RSV Immunization ( o r 60+ Years) (1 - 1-dose 75+ series) 2029 Insurance [facility] MEDIC[facility] [place] Care Teams Interventional Radiology Technologist Relationship Specialty Start Date End Date Unknown, Provider, PCP - General 10/08/19
--- OUTSIDE RECORDS SUMMARY | 2024-12-03 12:21 | XMS_ITS | Encounter Summary ---
Author Organization [facility] Address [address] [place] [address] Care Team Providers Care Carbon Accountant Name Role Phone Unknown, Provider Primary Care Provider Unava ilable Encounter Details Date Type Department Care Team (Late st Contact Info) Description 10/09/2019 Lab Requisition [facility] Pathology & Laboratory Medicine - [address] [address] Unknown, Provider, Social History Tobacco Use Types Packs/Day Years Used Date Smoking Tobacco: Never Assessed Sex and Gender Information Value Date Recorded Sex Assigned at Not on file Legal Sex Male 22:05 EST Gender Identity Not on file Sexual Orientation Not on file documented as of this encounter Plan of Treatment Pending Results Name Type Priority Associated Diagnoses Date /Time SURGICAL PATHOLOGY Pathology Routine 2018 11:14 EST documented as of this encounter Visit Diagnoses Not on filedocumented in this encounter Care Teams Carbon Accountant Relationship Specialty Start Date End Date Unknown, ProviderMD PCP - General 10/08/19 documented as of this encounter
--- OUTSIDE RECORDS SUMMARY | 2024-12-03 12:21 | XMS_ITS | Referral Summary ---
Author Organization [facility] Address [address] [place] [address] Care Team Providers Care Continuity Manager Name Role Phone Unknown, Provider Primary Care [...] Orientation Not on file Plan of Treatment Not on file Insurance [facility] [place] Care Teams Continuity Manager Relationship Specialty Start Date End Date Unknown, Provider, PCP - General 10/08/19
--- OUTSIDE RECORDS SUMMARY | 2024-12-03 12:21 | XMS_ITS | Encounter Summary ---
Author Organization [facility] Address [address] [place] [address] Care Team Providers Care Developer Designer Name Role Phone Unknown, Provider Primary Care Provider Unava ilable Encounter Details Date Type Department Care Team (Late st Contact Info) Description 01/20/2020 Lab Requisition [facility] Pathology & Laboratory Medicine - [address] [address] Odell Chapa MD [address] [place] [phone] Encounter for other general examination Social History Tobacco Use Types Packs/Day Years [...] Priority Date/Time Associated Diagnosis Comments SURGICAL PATHOLOGY Today 01/20/2020 13 :04 EST documented in this encounter Results * SURGICAL PATHOLOGY (01/20/2020 13:04 EST) Final Diagnosis A. COLON, TRANSVERSE, POLYP # 1, BIOPSY: - Tubular adenoma. B. COLON, TRANSVERSE, POLYP # 2, BIOPSY: - Tubular adenoma. C. COLON, TRANSVERSE, POLYP # 3, BIOPSY: - Tubular adenoma. D. RECTUM, POLYP # 1, BIOPSY: - Consistent with hyperplastic polyp. E. RECTUM, POLYP # 2, BIOPSY: - Hyperplastic polyp. 01/24/2020 11:45 EST [facility] at 1145 Clinical History None stated 01/24/2020 11:45 [facility] Attestation By the signature below, the attending physician certifies that they have 1) personally conducted a gross and/or microscopic examination of the described specimen(s), and/or personally interpreted the results of laboratory testing of the described specimen(s), and 2) personally rendered or confirmed the above diagnosis. 01/24/2020 11:45 [facility] at 1145 Gross Description A. Received in formalin labelled with proper patient identification (initials S, D) and transverse colon polyp # 1 is a ragged beatty-brown polyp, 0.9 x 0.3 x 0.2 cm. Entirely submitted in A1. B. Received in formalin labelled with proper patient identification (initials S, D) and transverse colon polyps # 2 are two beatty nodular tissues averaging 0.3 x 0.2 x 0.1 cm. Entirely submitted in B1. C. Received in formalin labelled with proper patient identification (initials S, D) and transverse colon polyp # 3 are 2 beatty irregular tissues, 0.2 x 0.1 x 0.1 cm and 0.2 x 0.2 x 0.1 cm. Entirely submitted in C1. D. Received in formalin labelled with proper patient identification (initials S, D) and rectal polyp # 1 is a beatty-brown nodular tissue, 0.3 x 0.2 x 0.2 cm. Entirely submitted in D1. E. Received in formalin labelled with proper patient identification (initials S, D) and rectal polyp # 2 is a beatty nodular tissue, 0.3 x 0.2 x 0.2 cm. Entirely submitted in E1. Perri Lopez 01/21/2020 08:17 01/24/2020 11:45 [facility] Scanned Images 01/24/2020 11:45 [facility] Tissue SPECIMEN FROM RECTUM / Unknown 01/20/2020 13:04 EST 01/20/2020 23:07 EST Tissue specimen (specimen) TRANSVERSE COLON STRUCTURE / Unknown 01/20/2020 13:04 EST 01/20/2020 23:07 EST Tissue specimen (specimen) TRANSVERSE COLON STRUCTURE / Unknown 01/20/2020 13:04 EST 01/20/2020 23:07 EST Tissue specimen (specimen) SPECIMEN FROM RECTUM / Unknown 01/20/2020 13:04 EST 01/20/2020 23:07 EST Tissue specimen (specimen) SPECIMEN FROM RECTUM / Unknown 01/20/2020 13:04 EST 01/20/2020 23:07 EST us Odell Chapa MD PATHOLOGY ORDERABLES F inal Result Performing Organization Address City/State/[facility] Co de Phone Number [facility] [address] [place] [address] documented in this encounter Visit Diagnoses Diagnosis Encounter for other general examination documented in this encounter Care Teams Developer Designer Relationship Specialty Start Date End Date Unknown, Provider, PCP - General 10/08/19 documented as of this encounter
--- OUTSIDE RECORDS SUMMARY | 2024-12-03 12:21 | XMS_ITS | Clinical Summary ---
[place] [address] Care Team Providers Care Candy Counter Clerk Name Role Phone Unavailable Primary Care Provider [...] Hepatitis C Screening 02/11/1972 Lipid Screening 02/11/1972 Tetanus/Diphtheria/Pertussis Vaccines (1 - Tdap) 02/10 Pneumoccocal Vaccine: 65+ (1 of 1 - PCV) 02/11/2004 Zoster vaccine (1 of 2) 02/11/2004 Advance Directive 2009 Covid-19 Vaccine ( - season) 2024 Influenza (Flu) vaccine (1 o f 1 - Influenza standard series) 08/01/2024
--- OUTSIDE RECORDS SUMMARY | 2024-12-03 12:21 | XMS_ITS | Encounter Summary ---
Author Organization [facility] Address [facility] [place] [address] Care Team Providers Care Mgmt Specialist Name Role Phone Unavailable Primary Care Provider Unavailabl e Encounter Details Date Type Department Care Team (Latest Contact Info) Description 09/09/2023 10:56 AM EDT - 09/09/2023 11:59 PM EDT Hospital Encounter Laboratory [facility] [place] [address] Discharge Disposition: Home Social History Tobacco Use [...] Report (09/09/2023 8:39 AM EDT) Final Diagnosis [id number] ? Location: [facility] The signing pathologist has (i) examined the relevant preparation(s) for the specimen(s) and (ii) rendered or confirmed the diagnosis(es). . ?Surgical Pathology DIAGNOSIS A - Descending Polyp: - ??Tubular adenoma. B - Rectal Polyp: - ??No tissue present. CR-PX Electronically signed by: ?Milind Bray MD Verified: ??09/17/2023 14:14 ??Pathologist Performed at: ??-[facility] Dept. of Pathology, [place] [address] Tool Room Lathe Operator: Margaux Liu MD, AP, ??CLIA Certificate: [id number] SPECIMEN(S) SUBMITTED A - Descending Polyp () [...] labeled B1. ??sdy 09/17/2023 2:14 PM EDT [facility] GI Biopsy 09/09/2023 8:39 AM EDT 09/09/2023 8:39 AM EDT GI Biopsy 09/09/2023 8:39 AM EDT 09/09/2023 8:39 AM EDT Odell Chapa MD PATHOLOGY/CYTO LOGY ORDERABLES [facility] [place] [address] [facility] [place] [phone] documented in this encounter Visit Diagnoses Not on filedocumented in this encounter
--- OUTSIDE RECORDS SUMMARY | 2024-12-03 12:21 | XMS_ITS | Encounter Summary ---
Author Organization [facility] Address [address] [place] [address] Care Team Providers Care Volunteer Coordinator Name Role Phone Unknown, Provider Primary Care Provider Unava ilable Encounter Details Date Type Department Care Team (Late st Contact Info) Description 08/31/2020 Lab Requisition [facility] Pathology & Laboratory Medicine - [address] [phone] Outr Resulting Lab, Provider Social History Tobacco Use Types Packs/Day Years [...] Procedure Name Priority Date/Time Associated Diagnosis Comments PSA TOTAL, DIAGNOSTIC Routine 08/31/2020 8:05 EDT documented in this encounter Results * PSA TOTAL, DIAGNOSTIC (08/31/2020 8:05 EDT) PSA 2.5 0.0 - 4.5 ng/mL 09/01/2020 18:[address] [facility] Blood VENOUS BLOOD / Unknown 08/31/2020 8:05 EDT 09/01/2020 16:[address] [facility] - 09/01/2020 18:04 EDT NOTE: Serum PSA concentration should not be interpreted as absolute evidence for the presence or absence of malignant disease. Assayed on Siemens ADVIA NightOwlaur XPT using chemiluminescent technology.??Values obtained by using different assay methods cannot be used interchangeably. us Provider Outr Resulting Lab CHEMISTRY & BLOOD GA S ORDERABLES Final Result [facility] [address] [place] [address] documented in this encounter Visit Diagnoses Not on filedocumented in this encounter Care Teams Volunteer Coordinator Relationship Specialty Start Date End Date Unknown, Provider, PCP - General 10/08/19 documented as of this encounter
--- OUTSIDE RECORDS SUMMARY | 2024-12-03 12:21 | XMS_ITS | Encounter Summary ---
Author Organization [facility] Address [address] [place] [address] Care Team Providers Care Field Contact Technician Name Role Phone Unknown, Provider Primary Care Provider Unava ilable Encounter Details Date Type Department Care Team (Late st Contact Info) Description 08/06/2024 Lab Requisition [facility] Pathology & Laboratory Medicine - [facility] [address] [place] [address] Breezy Love, [facility] [address] JOHANN [address] [place] [address] Melanocytic nevi, unspecified Social History Tobacco Use Types Packs/Day Years [...] Date/Time Associated Diagnosis Comments SURGICAL PATHOLOGY Today 08/05/2024 11 :45 EDT Melanocytic nevi, unspecified documented in this encounter Results * SURGICAL PATHOLOGY (08/05/2024 11:45 EDT) Note to Patient The following pathology results have been interpreted by your pathologist and may be available to you before your health provider has had the opportunity to review them. Please allow time for your provider to receive these results and explore management options, if applicable. 08/09/2024 8:14 EDT [facility] Final Diagnosis A. SKIN OF LATTER DAY, RIGHT, SHAVE BIOPSY: - Seborrheic keratosis, pigmented. 08/09/2024 8:14 [facility] Attestation By the signature below, the attending physician certifies that they have 1) personally conducted a gross and/or microscopic examination of the described specimen(s), and/or personally interpreted the results of laboratory testing of the described specimen(s), and 2) personally rendered or confirmed the above diagnosis. 08/09/2024 8:14 T [facility] at 0814 Clinical History Atypical nevi vs melanoma in-situ; clinical diagnosis code: D22.9 08/09/2024 8:14 T [facility] Gross Description A. Received in formalin labelled with proper patient identification (initials S, D) and R cheondoism is an ovoid pale-beatty skin shave, 0.5 x 0.3 x 0.1 cm. The majority of the skin surface shows a dusky dark brown gr macule with irregular borders, 0.4 cm in greatest dimension. The margin is inked. Bisected and entirely submitted in A1. ALYX BUENROSTRO(ASCP) 08/06/2024 8:59 08/09/2024 8:14 T [facility] Performing Lab [facility] 08/09/2024 8:14 T [facility] Scanned Images 08/09/2024 8:14 [facility] Tissue SPECIMEN FROM SKIN / Unknown 08/05/2024 11:45 EDT 08/06/2024 8:02 EDT us Breezy Love [facility] PATHOLOGY ORDERABLES Alondra l Result [facility] [address] [place] [address] documented in this encounter Visit Diagnoses Diagnosis Melanocytic nevi, unspecified documented in this encounter Care Teams Field Contact Technician Relationship Specialty Start Date End Date Unknown, Provider, PCP - General 10/08/19 documented as of this encounter
[2024-12-03 15:33] LABS: HCT 48.2 % (40.0-50.0); HGB 16.5 g/dL (13.5-17.5); MCH 33.7 pg (27.0-33.0); MCHC 34.2 % (32.0-36.0); MCV 98 fL (80-95); MPV 10.1 fL (8.0-11.0); Platelet Count 211 10^3/uL (130-400); RDW 12.2 % (11.8-14.1); RDW-SD 44.3 fL; WBC 8.53 10^3/uL (4.4-10.8)
[2024-12-03 16:36] LABS: ALT 25 U/L (16-63); AST 14 U/L (15-37); Albumin 4.1 g/dL (3.4-5.0); Alkaline Phosphatase 50 U/L (46-116); Anion Gap 14.1 mmol/L (3-11); BUN 25 mg/dL (7-18); Bilirubin, Total 0.74 mg/dL (0.2-1.0); CO2 20.9 mmol/L (21.0-32.0); CREATININE 0.9 mg/dL (0.70-1.30); Calcium 9.5 mg/dL (8.5-10.1); Calculated LDL 46 mg/dL (<100); Chloride 102 mmol/L (98-107); Cholesterol 118 mg/dL (<200); Estimated GFR 91.88 (mL/min/1.73m2); Glucose 154 mg/dL (74-106); HDL Cholesterol 58 mg/dL (40-60); Potassium 4.8 mmol/L (3.5-5.1); Sodium 137 mmol/L (136-145); Total Protein 7.3 g/dL (6.4-8.2); Triglyceride 72 mg/dL (<150)
== END 2024-12-03 12:17 | disposition home or self-care (01) ==
LOC: NCHCN 12:16
PROVIDERS: PCP Physician Assistant; Visit Provider Physician Assistant
DX: E11.9 Type 2 diabetes mellitus without complications (principal); I48.91 Unspecified atrial fibrillation
CPT/HCPCS: 80053; 80061; 85027; 83036

== ENCOUNTER 2025-03-28 13:15 | Outpatient (REF) | payer MEDICARE, BC, SELFPAY ==
[2025-03-28 17:32] LABS: COMMENT (LAB VIEW ONLY) 26.54 mg/dL
== END 2025-03-28 13:16 | disposition home or self-care (01) ==
LOC: NCHCN 13:15
PROVIDERS: PCP Physician Assistant; Visit Provider Physician Assistant
DX: E11.9 Type 2 diabetes mellitus without complications (principal)
CPT/HCPCS: 82043; 82570

== ENCOUNTER 2025-04-28 09:58 | Outpatient (CLI) | payer MEDICARE, BC, SELFPAY ==
[2025-04-28] VITALS (7 sets, daily range): BP systolic 126–150; BP diastolic 65–90; PULSE 66–100; RESP 20–30; TEMP 36.7; O2SAT 95–97
--- NOTE | 2025-04-28 06:00 | DI.RAD_ITS ---
Exam(s) XR PAIN CLINIC SACRIOILIAC 2V EXAM: XR PAIN CLINIC SACRIOILIAC 2V CLINICAL HISTORY: Dx: Sacroiliac Joint Dysfunction TECHNIQUE: 2D and realtime digital imaging was performed. Radiologist not present. CONTRAST MATERIAL: None. COMPARISON: No exams were available for comparison FINDINGS: Fluoroscopy was provided for pain management therapy. Therapeutic sacroiliac joint injections. Please refer to procedure report or details. Radiation Exposure Index: Ka,r=15.69 mGy IMPRESSION: As above. RADIATION DOSE DELIVERED:
[2025-04-28] MEDS: Nerve Block Tray 1 EACH MC (10:49)
[2025-04-28] MEDS: Omnipaque 240 MG/ML 50 ML BTL IJ (10:49)
[2025-04-28] MEDS: methylPREDNISolone ACETATE 80 MG/ML VIAL IJ (10:49)
--- NOTE | 2025-05-03 09:04 | PDOC.PAIN ---
Date of service: 04/28/25 Time of Service: 10:11 Pain Managment Procedure Note Procedure Note Procedure Note: PROCEDURE NOTE BILATERAL INTRA-ARTICULAR SACROILIAC JOINT INJECTION Date of Service: April 28, 2025 Patient: Levi Hardwick Provider: Michael Gabriel DO, MPH COMMENTS: I previously evaluated the patient in the office and their symptoms in relation to the sacroiliac joint pain have remained the same. No step for the Eliquis with this procedure per GREG guidelines. Pre-operative diagnosis: Sacroiliac joint dysfunction ICD-10 M53.3 Post-operative diagnosis: Same Pre-procedure pain: VAS= 7/10 Levi Hardwick has been referred to our [facility] for a Bilateral intra-articular Sacroiliac joint injection. Levi was interviewed and the medical record reviewed. There were no medical, pharmacologic, radiographic or other structural contraindications to attempting a fluoroscopically-guided, contrast-enhanced, intra-articular Sacroiliac joint injection. The risks, benefits, and potential side effects of this procedure were reviewed with the patient. Questions and concerns were addressed. After it was clear that Levi was fully informed about the procedure, the printed consent form was signed by the patient and myself. Levi was placed in the prone position on the fluoroscopy table and an automated blood pressure cuff, 3 lead EKG, and pulse oximeter were applied. The skin entry point for approaching the Left sacroiliac joint was identified under the most advantageous fluoroscopic view and marked. Following thorough Chlorhexadine preparation of the skin and draping with sterile surgical drapes, 2 mls of 1% lidocaine was infiltrated into the skin at the entry point and the surrounding subcutaneous tissues. Next, a 3.5 22G spinal needle was placed under fluoroscopic guidance into the Left sacroiliac joint. Intra-articular placement was confirmed by a clear arthrogram resulting from the injection of 0.25ml of Omnipaque-240. Next, 1 ml of Depo- Medrol 40 mg/ml was injected intra-articularly with an initial reproduction of a significant component of the usual pain. This was followed with 1 ml of 1% Lidocaine. The needle was then removed without difficulty. (49 ml of Omnipaque-240 was wasted). The exact procedure was completed on the opposite sacroiliac joint. Levi's vital signs were stable throughout the procedure and were as recorded in nursing records. Follow up plans and appointments were discussed with Levi. Post procedure instructions were given as documented in nursing records. Having met discharge criteria, Levi was [facility] the [facility] COMMENTS: Post-procedure pain: VAS= 3/10. If the patient receives at least 50% improvement in pain and/or function for at least 3 months, this procedure can be repeated if needed. I personally performed this entire procedure. MICHAEL GABRIEL DO, MPH ABPMR-subspecialty board certification in Pain Medicine [facility] Coding Conscious Sedation used for procedure: No CPT Codes: SI Joint Inj; incl Fluoro * BILATERAL* - [id number] ([id number]) Additional Codes: Date of Service (95248) Date of service: 04/28/25
== END 2025-04-28 09:59 | disposition home or self-care (01) ==
LOC: PC 09:58
PROVIDERS: PCP Physician Assistant; Visit Provider Preventive Medicine Occupational Medicine
DX: M53.3 Sacrococcygeal disorders, not elsewhere classified (principal); M54.50 Low back pain, unspecified
CPT/HCPCS: 27096; 72200; J1010; Q9967